=== PATIENT | female | born 1950 | race Caucasian/White ===

== ENCOUNTER 2019-11-16 13:05 | Emergency (ER) | payer MEDICARE, SELFPAY ==
[2019-11-16 13:45] VITALS: BP 134/87; PULSE 70; RESP 20; TEMP 36.6; O2SAT 98; BMI 26.4
--- NOTE | 2019-11-16 13:55 | HMH.EDUTC ---
[facility] Clinical Impression: Encounter for laboratory testing for COVID-19 virus Disposition: Home, Self-Care Condition on Discharge: Good Instructions: Preventing the Spread of Coronavirus Discharge Instructions Additional Instructions: You was given handout with instructions for COVID self quarantine and Self isolation make sure you follow those instructions until you get your test back and the results Call back to the [facility] on Wednesday to see if your COVID test results are back No work until negative COVID test Follow up with Family doctor if needed Return if needed Straight to ER if any life threatening symptoms Referrals: PCP,No [Primary Care Provider] - As needed Time of Disposition: 13:59 Medical Decision Making - Alexy Inquiry Pt receiving controlled substance: No Alexy was queried for this patient: No Vital Signs: 11/16/19 13:45 Temperature 97.8 F Temperature Source Oral Pulse Rate [Left Brachial] 70 Respiratory Rate 20 Blood Pressure [Left Arm] 134/87 Blood Pressure Mean [Left Arm] 102 Blood Pressure Source [Left Arm] Automatic Cuff Blood Pressure Position [Left Arm] Sitting 02 Sat by Pulse Oximetry 98 Oxygen Delivery Method Room Air Orders (Tests/Meds): ORDERS Category Date Time Status SARS-CoV-2, MARTINA Stat Lab 11/16/19 13:15 [place] [facility] [place] - General Stated complaint: WANTS COVID TEST Time Seen by Provider: 11/16/19 13:55 Mode of Arrival: Ambulatory Source of Information: Patient Limitations: No Limitations Description of Symptoms (Recalled from Triage Doc. by RN): PATIENT IS REQUESTING COVID TEST FOR WORK. DENIES ANY SYMPTOMS HEENT Symptoms (Recalled from RN notes): No Resp Symptoms (Recalled from RN notes): No Skin Symptoms (Recalled from RN notes): No MS Symptoms (Recalled from RN notes): No Functional Status (Recalled from RN notes): wnl - History of Present Illness Provider Complaint: Patient states that another employee at her work tested positive for COVID States that also she just got back from [place] and her work is wanted her to get tested for COVID States that she isnt having any symptoms at this time but came in to be tested - Related Data Home Medications Medication Instructions Recorded Confirmed Celecoxib [Celebrex 200mg cap] 200 mg PO DAILY 11/16/19 11/16/19 Progesterone, Micronized 100 mg PO DAILY 11/16/19 11/16/19 [Prometrium 100mg capsule] estradioL [Estradiol] 2 mg PO DAILY 11/16/19 11/16/19 lisinopriL [Lisinopril 20mg Tab] 20 mg PO DAILY 11/16/19 11/16/19 Allergies Allergy/AdvReac Type Severity Reaction Status Date / Time No Known Allergies Allergy Verified 11/16/19 13:47 - Worker's Comp Is this a Worker's Comp case?: No [facility] History - Hepatitis A Screen Drug use history?: No High risk sexual behaviors?: No History of sexually transmitted infection?: No Currently employed?: No Childcare worker?: No Do you have indoor plumbing?: Yes Do you have electricity?: Yes Attestation statement:: This patient has been screened for Hepatitis A risk factors. I have reviewed the patient's past medical history: Yes Laterality Cases: Bilateral: Tonsillectomy - Social History Alcohol Intake: current Occupational Status: other ROS Obtained: Yes All systems reviewed & no additional complaints, Yes Systems reviewed as appropriate & no additional complaints - Constitutional Constitutional: Reports system reviewed and no additional complaints, except as docu - Eyes Eyes: Reports system reviewed and no additional complaints, except as docu - ENT Ears, Nose, Mouth, and Throat: Reports system reviewed and no additional complaints, except as docu - Cardiovascular Cardiovascular: Reports system reviewed and no additional complaints, except as docu - Respiratory Respiratory: Yes system reviewed and no additional complaints, except as docu - Gastrointestinal Gastrointestingal: Reports: system reviewed and no additi
[2019-11-16 14:10] VITALS: BP 134/87; PULSE 70; RESP 20; TEMP 36.6; O2SAT 98
[2019-11-17 13:29] LABS: Covid-19 Nasal PCR Sendout Lex Not Detected
== END 2019-11-16 14:15 | disposition home or self-care (01) ==
PROVIDERS: Emergency Provider Nurse Practitioner
DX: Z20.828 Contact with and (suspected) exposure to other viral communicable diseases (principal); I10 Essential (primary) hypertension; Z90.09 Acquired absence of other part of head and neck
CPT/HCPCS: 99201; U0004